=== PATIENT | female | born 1995 | race Caucasian/White ===

== ENCOUNTER → 2018-05-06 10:22 | Outpatient (CLI) | payer OTHER, SELFPAY ==
[2018-05-07 10:33] LABS: hCG Titer Quant., Serum 3 mIU/mL (<9 non-preg)
--- OUTSIDE RECORDS SUMMARY | 2018-07-09 13:04 | XMS RPT_ITS ---
:1995 Author Organization OHIP Care Team Providers Name Role Phone BradlyGeena Attending Unavailable BarrientosParviz Summer Referring Unavailable PROBLEMS PROBLEMS DATE TYPE CONDITION / CODE ATTENDING STATUS SOURCE 05/07/2018 Unknown O20.0 - Bradly Active Randi Threatened Summer [facility] / Hospital O20.0(ICD-10) Repository PROCEDURES PROCEDURES No Procedure Records FoundRESULTS RESULTS HCG TITER QUANT., Collected: 05/06/2018 Status: F Source: RANDI SERUM 11:59 AM [facility] REPOSITORY TYPE CODE TESTS RESULT OUT OF RANGE REFERENCE UNITS LAB L700.8000 <9 non-preg mIU/mL Normal HCG 3 QUANT. Performed By: #### L700.8000 #### [facility] [address] [place], [address] ABO RH BLOOD TYPE, Collected: 05/06/2018 Status: F Source: RANDI PATIENT 11:59 AM [facility] REPOSITORY TYPE CODE TESTS RESULT OUT OF RANGE REFERENCE UNITS LAB B10.0800 A Normal BLOOD NEGATIVE TYPE GEL Performed By: #### B10.0010 #### [facility] [address] [place], [address] ALLERGIES ALLERGIES No Allergies Records FoundENCOUNTERS ENCOUNTERS ADMIT/DISCHARGE ACCOUNT ADMITTING ENCOUNTER LOCATION SOURCE NUMBER CLASS 05/06/2018 [id number] Ambulatory [address] ing:LABSPEC Repository PAYERS PAYERS ENCOUNTER GUARANTOR PAYER SUBSCRIBER SOURCE 05/06/2018 [place] Primary Insurance:[facility] [place] Costa Randi [id number] W SHARED SERVICES HERSHYDOB[facility] [address]Prmwuw Number: [id number] [id number] [facility] Date:2612-65-04[address] [address]Rxk: [phone] [phone] () [place] [address]UV: 05/06/2018 Secondary NOT GIVENUNK Randi Insurance:SELF PAY Community [facility] Number: Effective Repository Date:2018-05-06
== END ==
PROVIDERS: Referring Provider Obstetrics & Gynecology; Visit Provider Obstetrics & Gynecology
DX: O20.0 Threatened abortion (principal)
CPT/HCPCS: 36415; 84702; 86900

== ENCOUNTER 2019-04-08 14:30 | Inpatient (IN) | payer OTHER, SELFPAY ==
[2019-04-08 11:26] VITALS: BMI 27.1
[2019-04-08 15:31] LABS: Absolute Lymphocyte Count 2.44 X10^3/uL (0.83-4.51); Absolute Neutrophil Count 15.4 X10^3/uL (2.0-7.7); Basophil# 0.05 X10^3/uL; Basophil% 0.3 % (0-1); Eosinophil# 0.21 X10^3/uL; Eosinophils% 1.1 % (0-5); Hematocrit 38.7 % (37-47); Hemoglobin 13.3 g/dL (12.0-15.0); Lymphocyte # 2.44 X10^3/ul (4.0); Lymphocyte % 12.8 % (19-41); Mean Corp Hgb Conc 34.4 g/dL (32-36); Mean Corpuscular Hgb 31.1 pg (27.0-32.0); Mean Corpuscular Volume 90.4 fL (81-99); Mean Platelet Vol. 9.8 fl (6.2-12.0); Monocyte# 0.87 X10^3/uL; Monocyte% 4.6 % (0-10); NRBC Flagged by Analyzer 0 % (0-5); Neutrophil # 15.35 X10^3/uL (2.7-7.7); Neutrophil % 80.6 % (47-70); Platelet Count 198 K/mm3 (150-450); RBC Distribution Width CV 13.9 % (11.6-14.6); RBC Distribution Width SD 45.1 fl (35.1-43.9); Red Blood Count 4.28 M/mm3 (4.2-5.4)
--- NOTE | 2019-04-08 18:08 | PCM.HP.BLA ---
History and Physical Date of Admission: 04/08/19 [facility] History of this : 23 yo female Ab0 with EDC 04/08/2019 by L =8 weeks1 day Ultrasound, presents to Labor and Delivery. care remarkable for - A NEG, Rubella NONIMMUNE, EPDS = 5, MSAFP and CF testing declined, Prefers not to have an epidural, but is not opposed to one., Laryngopharyngeal reflux, 3 indoor/outdoor cats, has been changing litter, advised to stop. Toxoplasmosis IgG, IgM included with labs., and childbirth classes encouraged, ALLERGIC to Aspirin! Pertinent Past Medical History: Rubella - 08/28/18 Group B Strep - Negative 03/12/19 Allergies: Aspirin Medications: During - Claritin 10 mg tablet; Zyrtec 10 mg tablet; 28 mg-800 mcg tablet STREP GP B LATASHA 03/12/19 STREP GP B LATASHA Negative Reviewed by MARK SCHAEFER. DIABETES 1-HR SCREEN 01/20/19 GESTATIONAL DIABETES SCREEN 100 mg/dL 65-139 CBC WITH DIFFERENTIAL/PLATELET 01/20/19 WBC 13.3 x10E3/uL 3.4-10.8 H RBC 3.85 x10E6/uL 3.77-5.28 HEMOGLOBIN 11.6 g/dL 11.1-15.9 HEMATOCRIT 34.9 % 34.0-46.6 MCV 91 fL 79-97 MCH 30.1 pg 26.6-33.0 MCHC 33.2 g/dL 31.5-35.7 RDW 13.1 % 12.3-15.4 PLATELETS 211 x10E3/uL 150-450 NEUTROPHILS 77 % Not Estab. LYMPHS 13 % Not Estab. MONOCYTES 5 % Not Estab. EOS 4 % Not Estab. BASOS 0 % Not Estab. IMMATURE CELLS NEUTROPHILS (ABSOLUTE) 10.3 x10E3/uL 1.4-7.0 H LYMPHS (ABSOLUTE) 1.8 x10E3/uL 0.7-3.1 MONOCYTES(ABSOLUTE) 0.6 x10E3/uL 0.1-0.9 EOS (ABSOLUTE) 0.5 x10E3/uL 0.0-0.4 H BASO (ABSOLUTE) 0.0 x10E3/uL 0.0-0.2 IMMATURE GRANULOCYTES 1 % Not Estab. IMMATURE GRANS (ABS) 0.1 x10E3/uL 0.0-0.1 NR HEMATOLOGY COMMENTS: ANTIBODY SCREEN 01/20/19 ANTIBODY SCREEN Negative Negative Reviewed by MARK WRITTEN AUTHORIZATION 09/24/18 WRITTEN AUTHORIZATION Written Authorization Received. Authorization received from LOREE Sifuentes LPN 09-25-2018 Logged by Betty Cornelius NICOTINE METABOLITE, URINE 09/24/18 COTININE Negative ng/mL Lcibgw=857 DRUG SCREEN COMMENT: This analysis is performed by immunoassay. Positive findings are unconfirmed analytical test results; if results do not support expected clinical finding, confirmation by an alternate methodology is recommended. Patient metabolic variables, specific drug chemistry, and specimen characteristics can affect test outcome. Technical consultation is available at [email or web address], or call toll free [phone]. [id number] 7+ALC-UNBUND 09/24/18 AMPHETAMINES, URINE Negative ng/mL Shuxrm=6849 Amphetamine test includes Amphetamine and Methamphetamine. BARBITURATE Negative ng/mL Kkwkhq=925 BENZODIAZEPINES Negative ng/mL Smqydc=855 CANNABINOID Negative ng/mL Cutoff=50 COCAINE (METAB.) Negative ng/mL Xosoku=250 OPIATES Negative ng/mL Omvxne=359 Opiate test includes Codeine and Morphine only. PHENCYCLIDINE Negative ng/mL Cutoff=25 ETHANOL, URINE Negative % Cutoff=0.020 Reviewed by LEWIS WRITTEN AUTHORIZATION 08/28/18 WRITTEN AUTHORIZATION Written Authorization Received. Authorization received from ORIGINAL ORDER 08-29-2018 Logged by Tanya Perez TOXOPLASMA ABS IGG/IGM 08/28/18 TOXOPLASMA GONDII AB,IGG,QN <3.0 IU/mL 0.0-7.1 Negative <7.2 Equivocal 7.2 - 8.7 Positive >8.7 TOXOPLASMA GONDII AB,IGM,QN 3.1 AU/mL 0.0-7.9 Negative <8.0 Equivocal 8.0 - 9.9 Positive >9.9 COMMENTS No serological evidence of infection with Toxoplasma. If symptoms persist, submit a new specimen after three weeks. Reviewed by LEWIS TOXOPLASMA ABS, IGG/IGM, CSF 08/28/18 TOXOPLASMA GONDII AB, IGG NOCSF IU/mL No Spinal Fluid received. TOXOPLASMA GONDII AB, IGM TNP Test not performed SPECIMEN STATUS REPORT 08/28/18 SPECIMEN STATUS REPORT VOIDQ Test Not Performed. Patient was unable to provide sufficient quantity of a self collected specimen for testing. . TEST: [id number] 7+Alc-Unbund [id number] Nicotine Metabolite, Urine REQUEST PROBLEM 08/28/18 REQUEST PROBLEM NOCSF No Spinal Fluid received. TEST: [id number] Toxoplasma Abs, IgG/IgM, CSF NICOTINE METABOLITE, URINE 08/28/18 COTININE VOIDQ ng/mL Test Not Performed. Patient was unable to provide sufficient quantity of a self collected specimen for testing. . DRUG SCREEN COMMENT: HCV ANTIBODY 08/28/18 HEP C VIRUS AB <0.1 s/co ratio 0.0-0.9 Negative: < 0.8 Indeterminate: 0.8 - 0.9 Positive: > 0.9 . CBC/D/PLT+RPR+UA+RH+ABO+RUB... 08/28/18 TSH 1.240 uIU/mL 0.450-4.500 HBSAG SCREEN Negative Negative RPR Non Reactive Non Reactive RUBELLA ANTIBODIES, IGG <0.90 index Immune >0.99 L Non-immune <0.90 Equivocal 0.90 - 0.99 Immune >0.99 ABO GROUPING A RH FACTOR Negative Please note: Prior records for this patient's ABO / Rh type are not available for additional verification. ANTIBODY SCREEN Negative Negative HIV SCREEN 4TH GENERATION WRFX Non Reactive Non Reactive WBC 17.8 x10E3/uL 3.4-10.8 H RBC 4.66 x10E6/uL 3.77-5.28 HEMOGLOBIN 13.6 g/dL 11.1-15.9 HEMATOCRIT 41.1 % 34.0-46.6 MCV 88 fL 79-97 MCH 29.2 pg 26.6-33.0 MCHC 33.1 g/dL 31.5-35.7 RDW 13.8 % 12.3-15.4 PLATELETS 288 x10E3/uL 150-379 Effective September 02, 2018 the reference interval for Platelets will be changing to: 0 - 7 d 140 - 396 x10E3/uL 8 - 30 d 139 - 531 x10E3/uL 31 d - 999 yrs 150 - 450 x10E3/uL NEUTROPHILS 72 % Not Estab. LYMPHS 18 % Not Estab. MONOCYTES 6 % Not Estab. EOS 4 % Not Estab. BASOS 0 % Not Estab. IMMATURE CELLS NEUTROPHILS (ABSOLUTE) 12.8 x10E3/uL 1.4-7.0 H LYMPHS (ABSOLUTE) 3.2 x10E3/uL 0.7-3.1 H MONOCYTES(ABSOLUTE) 1.1 x10E3/uL 0.1-0.9 H EOS (ABSOLUTE) 0.7 x10E3/uL 0.0-0.4 H BASO (ABSOLUTE) 0.0 x10E3/uL 0.0-0.2 IMMATURE GRANULOCYTES 0 % Not Estab. IMMATURE GRANS (ABS) 0.0 x10E3/uL 0.0-0.1 NRBC HEMATOLOGY COMMENTS: SPECIFIC GRAVITY 1.013 1.005-1.030 PH 7.0 5.0-7.5 URINE-COLOR Yellow Yellow APPEARANCE Clear Clear WBC ESTERASE Negative Negative PROTEIN Negative Negative/Trace GLUCOSE Negative Negative KETONES Negative Negative OCCULT BLOOD Negative Negative BILIRUBIN Negative Negative UROBILINOGEN,SEMI-QN 0.2 mg/dL 0.2-1.0 NITRITE, URINE Negative Negative MICROSCOPIC EXAMINATION Microscopic not indicated and not performed. AMBIGUOUS TEST ORDER 08/28/18 AMBIGUOUS TEST ORDER Report delayed in order to contact you to clarify requested test(s). TEST: [id number] Toxoplasma Abs IgG/IgM Contacted Kanchan Barber at your facility on 08/29/18 [id number] 7+ALC-UNBUND 08/28/18 AMPHETAMINES, URINE VOIDQ ng/mL Test Not Performed. Patient was unable to provide sufficient quantity of a self collected specimen for testing. . Amphetamine test includes Amphetamine and Methamphetamine. BARBITURATE TNP Test not performed BENZODIAZEPINES TNP Test not performed CANNABINOID TNP Test not performed COCAINE (METAB.) TNP Test not performed OPIATES TNP Test not performed PHENCYCLIDINE TNP Test not performed ETHANOL, URINE TNP Test not performed Reviewed by LEWIS SHAW IG, RFX HPV ASCU 08/14/18 DIAGNOSIS: NEGATIVE FOR INTRAEPITHELIAL LESION OR MALIGNANCY. SPECIMEN ADEQUACY: Satisfactory for evaluation. Endocervical and/or squamous metaplastic cells (endocervical component) are present. CLINICIAN PROVIDED ICD10: Z12.4 Z11.3 Z32.01 PERFORMED BY: Ole Witt, Cytogenetic Technologist (ASCP) .. The HPV DNA reflex criteria were not met with this specimen result therefore, no HPV testing was performed. . CHLAMYDIA/GC AMPLIFICATION 08/14/18 CHLAMYDIA TRACHOMATIS, LATASHA Negative Negative NEISSERIA GONORRHOEAE, LATASHA Negative Negative Source.............Cervix;Endocervix LMP / Prev Treat...RMO=[id number] Other.............. No. of containers..01 ThinPrep Vial No. of containers..01 Aptima Vaginal Swab ([place] Label) Reviewed by LEWIS Review of Systems: - Non-contributory PHYSICAL EXAMINATION General Appearence: 23 yo female in no acute distress Vital Signs: AF, VSS Heart: RRR without rubs or gallops Lungs: CTA x 2 Breasts: Deferred Abdomen: Gravid Pelvis: Adequate Cervix: 7/90/-2 per RN at 1740 Presentation: Cephalic Fetus: Size: AGA Movement: Present Heart: 125 bpm baseline, moderate variability, +accels, no decels UCs: Q 2-3 Impression: 23yo at 40w0d gestation by L=8w1d US GBS negative A negaive Rubella non-immune Active labor Cat 1 FHTs Plan: Admit to L&D Expectant management Anticipate vaginal delivery See Progress Notes for Changes:
[2019-04-08] MEDS: Lactated Ringers 1,000 ML 50 ML IV ×2 (20:10→22:57)
--- NOTE | 2019-04-08 21:09 | PCM.PN.OB ---
Subjective: Feeling okay. Pressure with peak of contraction. Objective: On hands and knees reclined position. Tolerating contractions. IV fluids on. massaging back. Able to talk through contractions. - Physical Exam Vitals/I&O's: Weight: 69.4 kg Body Mass Index (BMI) 27.1 Intake and Output for Last 24 Hours 04/06/19 04/07/19 04/08/19 23:59 23:59 23:59 Intake Total 200 / 200 Balance 200 / 200 General: Alert, Oriented x3, Cooperative HEENT: Atraumatic, PERRLA, EOMI, Normocephalic Neck: Supple, No JVD, Negative Carotid Bruits Lungs: Clear to auscultation, Normal air movement Cardiovascular: Regular rate, No murmurs Abdomen: Bowel Sounds Present, Soft, Non Tender Extremities: No edema, Capillary Refill Less than 3 Seconds Skin: No rashes, No breakdown Musculoskeletal: No Tenderness to Palpation of Joints or Extremities Neurological: Cranial nerves II-XII grossly intact Psych/Mental Status: Normal Affect, Appropriate Laboratory Results 04/08/19 15:10: WBC 19.0 H, RBC 4.28, Hgb 13.3, Hct 38.7, MCV 90.4, MCH 31.1, MCHC 34.4, RDW Std Deviation 45.1 H, RDW Coeff of Christ 13.9, Plt Count 198, MPV 9.8, Immature Gran % (Auto) 0.600, Neut % (Auto) 80.6 H, Lymph % (Auto) 12.8 L, [place] % (Auto) 4.6, Eos % (Auto) 1.1, Baso % (Auto) 0.3, Absolute Neuts (auto) 15.4 H, Absolute Lymphs (auto) 2.44, Nucleated RBC % 0 04/08/19 15:10: Blood Type A NEGATIVE, Antibody Screen NEGATIVE Current Medications Acetaminophen (Tylenol) 325 - 650 mg PO Q4H PRN PRN PRN Reason: Pain Score 1-3/10 Al Hydroxide/Mg Hydroxide (Mylanta Ii) 15 - 30 ml PO Q4H PRN PRN PRN Reason: INDIGESTION Citric Acid/Sodium Citrate (Bicitra) 30 ml PO X1 PRN PRN Reason: Section Lactated Ringer's () 500 mls @ 999 mls/hr IV .Q31M PRN PRN Reason: Epidural Lactated Ringer's () 500 mls @ 999 mls/hr IV .Q31M PRN PRN Reason: Corrective Measures Lactated Ringer's () 1,000 mls @ 50 mls/hr IV .Q20H ILIA Last Admin: 04/08/19 20:10 Dose: 50 mls/hr Documented by: Nalbuphine HCl (Nubain) 5 - 10 mg IV Q3H PRN PRN PRN Reason: Pain Score 4-10/10 Nalbuphine HCl (Nubain) 5 - 10 mg SC Q3H PRN PRN PRN Reason: Pain Score 4-10/10 Ondansetron HCl (Zofran) 4 mg IV Q4H PRN PRN PRN Reason: NAUSEA Prochlorperazine Edisylate (Compazine Iv) 10 mg IV Q6H PRN PRN PRN Reason: NAUSEA Sodium Chloride () 10 - 40 ml IV X1 PRN PRN Reason: SALINE FLUSH Medical Necessity - Tobacco Use Smoking Status: Never smoker Assessment/Plan A: SVE per RN /-1 at 2011 Active labor VSS, afebrile 97.7 NST reactive, Category I. Increase in baseline to 170, + accels, variables noted, moderate variability UC 1-4 minutes P: Continue with labor with expected IV fluids to continue
--- NOTE | 2019-04-08 22:30 | PN_ITS ---
Progress Note S: Feeling pressure with contractions, minimal pain, cold/shaky O: VSS, visibly shaking breathing through contractions which palpate intense heart rate back to baseline with + accels, - decels and moderate variability SVE 9.5/90/0 with anterior lip 9 o'clock to 12 o'clock, do not feel membranes- unknown rupture time? A: Category I FHR SVE changed in the last two hours ROM? Possibly in shower according to patient P: Continue natural labor Materal positioning with peanut ball to right sided [place] roll Anticipate
[2019-04-08] MEDS: Lactated Ringers 1,000 ML 999 ML IV (22:56)
--- NOTE | 2019-04-09 00:16 | PN.OBGYN_ITS ---
Subjective: Contraction pain /10, but no urge to push Objective: VSS. Currently using squat bar with contractions - Physical Exam Vitals/I&O's: Weight: 69.4 kg Body Mass Index (BMI) 27.1 Intake and Output for Last 24 Hours 04/07/19 04/08/19 04/09/19 23:59 23:59 23:59 Intake Total 879.64 / 879.64 Output Total 100 / 100 Balance 779.64 / 779.64 General: Alert, Oriented x3, Cooperative HEENT: Atraumatic, PERRLA, EOMI, Normocephalic Neck: Supple, No JVD, Negative Carotid Bruits Lungs: Clear to auscultation, Normal air movement Cardiovascular: Regular rate, No murmurs Abdomen: Bowel Sounds Present, Soft, Non Tender, Gravid Extremities: No edema, Capillary Refill Less than 3 Seconds Skin: No rashes, No breakdown Musculoskeletal: No Tenderness to Palpation of Joints or Extremities Neurological: Cranial nerves II-XII grossly intact Psych/Mental Status: Normal Affect, Appropriate Laboratory Results 04/08/19 15:10: WBC 19.0 H, RBC 4.28, Hgb 13.3, Hct 38.7, MCV 90.4, MCH 31.1, MCHC 34.4, RDW Std Deviation 45.1 H, RDW Coeff of Christ 13.9, Plt Count 198, MPV 9.8, Immature Gran % (Auto) 0.600, Neut % (Auto) 80.6 H, Lymph % (Auto) 12.8 L, Jerome % (Auto) 4.6, Eos % (Auto) 1.1, Baso % (Auto) 0.3, Absolute Neuts (auto) 15.4 H, Absolute Lymphs (auto) 2.44, Nucleated RBC % 0 04/08/19 15:10: Blood Type A NEGATIVE, Antibody Screen NEGATIVE Current Medications Acetaminophen (Tylenol) 325 - 650 mg PO Q4H PRN PRN PRN Reason: Pain Score 1-3/10 Al Hydroxide/Mg Hydroxide (Mylanta Ii) 15 - 30 ml PO Q4H PRN PRN PRN Reason: INDIGESTION Citric Acid/Sodium Citrate (Bicitra) 30 ml PO X1 PRN PRN Reason: Section Lactated Ringer's () 500 mls @ 999 mls/hr IV .Q31M PRN PRN Reason: Epidural Lactated Ringer's () 500 mls @ 999 mls/hr IV .Q31M PRN PRN Reason: Corrective Measures Lactated Ringer's () 1,000 mls @ 50 mls/hr IV .Q20H ILIA Last Admin: 04/08/19 22:57 Dose: 50 mls/hr Documented by: Nalbuphine HCl (Nubain) 5 - 10 mg IV Q3H PRN PRN PRN Reason: Pain Score 4-10/10 Nalbuphine HCl (Nubain) 5 - 10 mg SC Q3H PRN PRN PRN Reason: Pain Score 4-10/10 Ondansetron HCl (Zofran) 4 mg IV Q4H PRN PRN PRN Reason: NAUSEA Prochlorperazine Edisylate (Compazine Iv) 10 mg IV Q6H PRN PRN PRN Reason: NAUSEA Sodium Chloride () 10 - 40 ml IV X1 PRN PRN Reason: SALINE FLUSH Medical Necessity - Tobacco Use Smoking Status: Never smoker Assessment/Plan A: SVE 10/100/0 >1 hour UC 1-4 minutes, no urge to push P: Continue natural labor, to recheck at 0100. If no progress will update collaborating MD to develop POC Continue position changes including hands and knees and throne with squat bar
[2019-04-09] MEDS: Oxytocin 30 units/NS 500 ml 30 UNITS/500 ML IV.SOLN 334 UNITS IV (03:35)
--- NOTE | 2019-04-09 03:55 | PCM.OPRPT ---
Problem List (1) Normal vaginal delivery Status: Acute Report of Operation Date of Procedure: 04/09/19 Vaginal Delivery Maternal Presentation: Active Labor arrived at with regular UC at 40wk0d Amniotic Membrane Rupture Type: Artificial Rupture of Membrane time: 2239 Amniotic Fluid Description: Clear Final [place]: 04/09/19 Final [place] Source: US <20 weeks Gestational age: 40 Weeks and 0 Days Date of Procedure: 04/09/19 Pre-Operative Diagnosis: Labor Post-Operative Diagnosis: S/P Surgery/ Procedure Performed: Spontaneous Vaginal Delivery Type of Anesthesia: None Description of Procedure: Called with head at introitus after 2 hours of controlled pushing. She pushed to deliver head over intact perineum. Head gently guided to allow delivery of anterior and posterior shoulders. Compound left hand presentation. Body delivered & infant placed on maternal abdomen. Viable male infant with cries after gentle stimulation and bulb suction by RN. Cord allowed to pulsate until spontaneously ceasing after 5 minutes. Clamped x2 and cut by CNM. IV Pitocin started with cutting of the cord. Maternal urge to push and spontaneous delivery of placenta. Fundal massage with good uterine tone obtained. No vaginal lacerations noted. Counts correct x 2 with RN. EBL 50. Presentation: Vertex, CAROLINE - compound left hand Placental Delivery Description: Spontaneous Placenta Disposition: [facility] Cord Vessel Description: 3 Vessels Cord Entanglement: None Estimated Blood Loss: 50 Infant A gender: Male (1 minute): 8 (5 minute): 9 Episiotomy Description: None Laceration: None Medications given after delivery: IV Pitocin
--- NOTE | 2019-04-09 04:12 | DCINST_ITS ---
Discharge Diet: No Restrictions Discharge Activity: Return to Normal Activity, May not drive while taking narcotic pain medications., May Shower May resume sexual activity in: - - One week after cessation of lochia and per maternal comfort Additional Activity Instructions:: Do not use tampons for 6 weeks, pads only. You may return to work/school after post- follow-up appointment. Additional Instructions: If you experience any of the following, contact your healthcare provider. * Bleeding that soaks a pad every hour for 2 hours * Fever 100.4 or higher * Unrelieved incision or abdominal pain * Swelling, redness, discharge or bleeding from your incision or episiotomy site * Your incision begins to separate * Problems urinating (including inability to urinate or burning while urinating). * Visual changes * Severe headache * Flu-like symptoms * Pain or redness in one of both of your breasts * Pain, warmth, tenderness or swelling in your legs, especially the calf area * Frequent nausea and vomiting * Symptoms of depression or anxiety If you experience any of the following, call 911 or go to the nearest Emergency Room. * Chest pain * Problems breathing * Seizure activity * Partial or complete paralysis of a body part, slurred speech, weakness or drooping of the face, or a sudden inability to walk or hold your balance Allergies/Adverse Reactions: Allergies aspirin Allergy (Verified 04/08/19 11:38) Nausea/Vom/Diarrhea Medications to take at Discharge Cetirizine HCl [Zyrtec] 10 mg PO DAILY 04/08/19 Caplet 1 tab PO DAILY 04/08/19 Please Follow Up With: Smitha Pérez CNM When: Call to make an appointment with your CNM in 6 weeks. If any signs of post depression, to return in 2 weeks. Primary Care Physician: Care Physician,No Primary [Primary Care Provider] - Test Results: Test results from this visit will be discussed in further detail at your follow- up appointment, if applicable.
[2019-04-09] MEDS: Ibuprofen 600 MG Tablet PO ×2 (05:43→12:59)
[2019-04-09 05:45] VITALS: BP 113/58; PULSE 77; RESP 18; TEMP 36.9
[2019-04-09] MEDS: 0.9% Saline Lock 10 ML Syringe IV (06:14)
[2019-04-09 08:55] VITALS: BP 115/68; PULSE 73; RESP 16; TEMP 36.4
[2019-04-09] MEDS: Acetaminophen 500 MG Tablet 1000 MG PO ×2 (10:03→14:34)
[2019-04-09 12:30] VITALS: BP 109/62; PULSE 100; RESP 14; TEMP 36.9
[2019-04-09 16:20] VITALS: BP 107/79; PULSE 79; RESP 14; TEMP 36.6
[2019-04-09 19:46] VITALS: BP 104/55; PULSE 101; RESP 16; TEMP 36.3; O2SAT 97
[2019-04-10 00:07] VITALS: BP 109/66; PULSE 90; RESP 20; TEMP 36.6; O2SAT 97
[2019-04-10 04:05] VITALS: BP 97/53; PULSE 65; RESP 16; TEMP 36; O2SAT 98
--- NOTE | 2019-04-10 07:16 | PCM.PN.OB ---
Patient Problems: Active and Suspected Problems Normal vaginal delivery (Acute) Subjective: She is sore, but no complaints. Denies heavy lochia. nursing well. She reports infant was gassy yesterday and fussy, but seems to do better today. She is anxious to start using her breast pump. Objective: AVSS - Physical Exam Vitals/I&O's: Vital Signs Temp Pulse Resp BP Pulse Ox 96.8 F L 65 16 97/53 L 98 04/10/19 04:05 04/10/19 04:05 04/10/19 04:05 04/10/19 04:05 04/10/19 04:05 Oxygen Delivery Method Room Air Weight: 69.4 kg Body Mass Index (BMI) 27.1 Intake and Output for Last 24 Hours 04/08/19 04/09/19 04/10/19 23:59 23:59 23:59 Intake Total 879.64 / 879.64 1131.67 / 1131.67 Output Total 100 / 100 900 / 900 Balance 779.64 / 779.64 231.67 / 231.67 General: Alert, Oriented x3, Cooperative, No apparent distress HEENT: Atraumatic Lungs: Normal air movement Cardiovascular: Regular rate, Regular Rhythm, Normal S1, Normal S2 Abdomen: Soft, Non Tender, Non-Distended, - - fundus firm and nontender, lochia scant Extremities: No edema, No Calf Tenderness Neurological: Neuro grossly intact Psych/Mental Status: Normal Affect, Appropriate, Alert and oriented to time, place, person, mood and affect Current Medications Acetaminophen (Tylenol) 1,000 mg PO Q8H PRN PRN PRN Reason: Pain Score 1-3/10 Last Admin: 04/09/19 14:34 Dose: 1,000 mg Documented by: Bisacodyl (Dulcolax) 10 mg RECTAL UD PRN PRN Reason: If no BM Dibucaine (Dibucaine) 1 applic TOPICAL TID PRN PRN; Protocol PRN Reason: Discomfort Hydrocortisone (Hytone) 1 applic TOPICAL TID PRN PRN; Protocol PRN Reason: Discomfort Ibuprofen (Motrin) 600 mg PO Q6H PRN PRN PRN Reason: Pain Score 1-3/10 Last Admin: 04/09/19 12:59 Dose: 600 mg Documented by: Methylergonovine Maleate (Methergine) 0.2 mg IM X1 PRN PRN Reason: Excess bleeding/uterine atony Ondansetron HCl (Zofran) 4 mg IV Q4H PRN PRN PRN Reason: Nausea Oxycodone HCl (Oxyir) 5 - 10 mg PO Q4H PRN PRN PRN Reason: Pain Score 4-10/10 Senna/Docusate Sodium (Senokot-S, Josefa-Colace) 1 - 2 tablet PO DAILY PRN PRN PRN Reason: Constipation Simethicone (Mylicon) 80 mg PO PCHS PRN PRN Reason: Indigestion/Stomach pain Sodium Chloride () 5 - 15 ml IV UD PRN PRN Reason: SALINE FLUSH Last Admin: 04/09/19 06:14 Dose: 10 ml Documented by: Zolpidem Tartrate (Ambien (Generic)) 5 mg PO QHS PRN PRN PRN Reason: Insomnia Medical Necessity - Tobacco Use Smoking Status: Never smoker Assessment/Plan All Active Problems Normal vaginal delivery (Acute) PPD#1 s/p doing well. -Rh negative, Rh positive - for Rhogam -Routine care -D/c home today
[2019-04-10 07:55] VITALS: BP 109/63; PULSE 83; RESP 16; TEMP 36.4
--- NOTE | 2019-04-10 08:00 | PCM.DC.SUM ---
Discharge Date and Diagnosis - Problem List Patient Problems: Active and Suspected Problems Normal vaginal delivery (Acute) Date of Admission: 04/08/19 Date of Discharge: 04/10/19 - Primary Discharge Diagnosis Active and Suspected Problems Normal vaginal delivery (Acute) Hospital Course and Treatment Operations: None Procedures: None Summary of Care Provided: The patient is a 23 year old F [] post vaginal delivery of viable male , not named yet. Patient Problems: Active and Suspected Problems Normal vaginal delivery (Acute) Subjective: Feeling well. Son is great with a good suck. Slight cramping, but Ibuprofen is enough. Passing flatus. Wants to discharge today. Objective: VSS. Fundus u/1 firm, midline, deep. Bleeding normal lochia. - Physical Exam Vitals/I&O's: Vital Signs Temp Pulse Resp BP Pulse Ox 96.8 F L 65 16 97/53 L 98 04/10/19 04:05 04/10/19 04:05 04/10/19 04:05 04/10/19 04:05 04/10/19 04:05 Oxygen Delivery Method Room Air Weight: 69.4 kg Body Mass Index (BMI) 27.1 Intake and Output for Last 24 Hours 04/08/19 04/09/19 04/10/19 23:59 23:59 23:59 Intake Total 879.64 / 879.64 1131.67 / 1131.67 Output Total 100 / 100 900 / 900 Balance 779.64 / 779.64 231.67 / 231.67 General: Alert, Oriented x3, Cooperative HEENT: Atraumatic, PERRLA, EOMI, Normocephalic Neck: Supple, No JVD, Negative Carotid Bruits Lungs: Clear to auscultation, Normal air movement Cardiovascular: Regular rate, No murmurs Abdomen: Bowel Sounds Present, Soft, Non Tender, Passing Flatus, - - fundus u/1 Extremities: No edema, Capillary Refill Less than 3 Seconds Skin: No rashes, No breakdown Musculoskeletal: No Tenderness to Palpation of Joints or Extremities Neurological: Cranial nerves II-XII grossly intact Psych/Mental Status: Normal Affect, Appropriate Current Medications Acetaminophen (Tylenol) 1,000 mg PO Q8H PRN PRN PRN Reason: Pain Score 1-3/10 Last Admin: 04/09/19 14:34 Dose: 1,000 mg Documented by: Bisacodyl (Dulcolax) 10 mg RECTAL UD PRN PRN Reason: If no BM Dibucaine (Dibucaine) 1 applic TOPICAL TID PRN PRN; Protocol PRN Reason: Discomfort Hydrocortisone (Hytone) 1 applic TOPICAL TID PRN PRN; Protocol PRN Reason: Discomfort Ibuprofen (Motrin) 600 mg PO Q6H PRN PRN PRN Reason: Pain Score 1-3/10 Last Admin: 04/09/19 12:59 Dose: 600 mg Documented by: Methylergonovine Maleate (Methergine) 0.2 mg IM X1 PRN PRN Reason: Excess bleeding/uterine atony Ondansetron HCl (Zofran) 4 mg IV Q4H PRN PRN PRN Reason: Nausea Oxycodone HCl (Oxyir) 5 - 10 mg PO Q4H PRN PRN PRN Reason: Pain Score 4-10/10 Senna/Docusate Sodium (Senokot-S, Josefa-Colace) 1 - 2 tablet PO DAILY PRN PRN PRN Reason: Constipation Simethicone (Mylicon) 80 mg PO PCHS PRN PRN Reason: Indigestion/Stomach pain Sodium Chloride () 5 - 15 ml IV UD PRN PRN Reason: SALINE FLUSH Last Admin: 04/09/19 06:14 Dose: 10 ml Documented by: Zolpidem Tartrate (Ambien (Generic)) 5 mg PO QHS PRN PRN PRN Reason: Insomnia Discharge Diet: No Restrictions Discharge Activity: Return to Normal Activity, May not drive while taking narcotic pain medications., May Shower May resume sexual activity in: - - One week after cessation of lochia and per maternal comfort Additional Activity Instructions:: Do not use tampons for 6 weeks, pads only. You may return to work/school after post- follow-up appointment. Home Medications: Medications to take at Discharge Cetirizine HCl [Zyrtec] 10 mg PO DAILY 04/08/19 Caplet 1 tab PO DAILY 04/08/19 Primary Care Physician: Care Physician,No Primary [Primary Care Provider] - Please Follow Up With: Smitha Pérez CNM When: Call for 6 week visit. If signs of depression 2 weeks Patient Instructions: Nutrition While , Common Questions About , : Caring for Yourself, at Home, After a Vaginal , Understanding Depression Additional Instructions: Continue Ibuprofen 600mg Q6H for cramping and discomfort as needed. May take Tylenol 650mg Q4-6H as needed for pain. May take OTC Colace or Senekot for stool softener x7D as needed. Disposition: Home Minutes spent on discharge:: 15 Patient Condition:: Good Medical Necessity - Tobacco Use Smoking Status: Never smoker Meaningful Use Info Meaningful Use Diagnoses (Choose all that apply): None applicable
[2019-04-10] MEDS: Senna/Docusate Sodium 1 Tablet PO (08:10)
[2019-04-10] MEDS: Ibuprofen 600 MG Tablet PO (08:10)
[2019-04-10] MEDS: Loratadine 10 MG Tablet PO (09:57)
[2019-04-10 13:45] VITALS: BP 110/67; PULSE 73; RESP 16; TEMP 36.4
== END 2019-04-10 16:10 | disposition home or self-care (01) | DRG 807 ==
LOC: WPOUT 15:04 → WP 15:04
PROVIDERS: Advanced Practice Midwife; Admitting Provider Obstetrics & Gynecology; Referring Provider Obstetrics & Gynecology; Visit Provider Obstetrics & Gynecology
DX: O32.6XX0 Maternal care for compound presentation, not applicable or unspecified (principal); O36.8330 Maternal care for abnormalities of the fetal heart rate or rhythm, third trimester, not applicable or unspecified; Z88.6 Allergy status to analgesic agent; Z3A.40 40 weeks gestation of pregnancy; Z37.0 Single live birth
CPT/HCPCS: 59025; 59050; 85025; 85461; 86850; 86900; 86901; 90384; 99218; J7120; A4216; G0378; J2790

== ENCOUNTER → 2021-03-09 10:56 | Outpatient (CLI) | payer OTHER, SELFPAY ==
[2021-03-09 11:34] LABS: Absolute Lymphocyte Count 2.76 X10^3/uL (0.83-4.51); Absolute Neutrophil Count 9.8 X10^3/uL (2.0-7.7); Basophil# 0.05 X10^3/uL; Basophil% 0.4 % (0-1); Eosinophil# 0.63 X10^3/uL; Eosinophils% 4.4 % (0-5); Hematocrit 39.1 % (37-47); Hemoglobin 13.3 g/dL (12.0-15.0); Lymphocyte # 2.76 X10^3/ul (0.83-4.51); Lymphocyte % 19.4 % (19-41); Mean Corpuscular Hgb 29.2 pg (27.0-32.0); Mean Corpuscular Volume 85.7 fL (81-99); Mean Platelet Vol. 9.2 fl (6.2-12.0); Monocyte% 6.3 % (0-10); NRBC Flagged by Analyzer 0 % (0-5); Neutrophil # 9.83 X10^3/uL (2.7-7.7); Platelet Count 307 K/mm3 (150-450); RBC Distribution Width CV 12.5 % (11.6-14.6); RBC Distribution Width SD 38.7 fl (35.1-43.9); Red Blood Count 4.56 M/mm3 (4.2-5.4); White Blood Count 14.2 K/mm3 (4.4-11.0)
[2021-03-09 11:37] LABS: Color, Urine Yellow (Yellow); Glucose, Dipstick Normal (Normal); Ketone-Dipstick Negative (Negative); Leukocyte Esterase-Dipstick 25 /ul (Negative); Nitrite-Dipstick Negative (Negative); Occult Blood-Urine Negative /ul (Negative); Protein-Dipstick Negative (Negative); Specific Gravity, Urine 1.015 (1.002-1.030); Urine Bilirubin Dipstick Negative (Negative); Urine Clarity Sl. Cloudy (Clear); Urine Urobilinogen Normal (Normal)
[2021-03-09 11:48] LABS: Amphetamine Urine VISTA NEGATIVE (<1000 ng/mL); Barbiturate Urine VISTA NEGATIVE (< 200 ng/mL); Benzodiazepine Urine VISTA NEGATIVE (< 200 ng/mL); Cocaine Urine VISTA NEGATIVE (< 300 ng/mL); Ecstacy Urine VISTA NEGATIVE (< 500 ng/mL); Methadone Urine VISTA NEGATIVE (< 300 ng/mL); PCP Urine VISTA NEGATIVE (< 25 ng/mL); THC Urine VISTA NEGATIVE (< 50 ng/mL); Vista UDS pH Range 6
[2021-03-09 11:55] LABS: Thyroid Stim Hormone (TSH) 0.59 uIU/mL (0.358-3.74)
[2021-03-09 12:27] LABS: HIV - WCH Non-Reactive (Nonreactive); Hepatitis B Surface Antigen Non-Reactive (Nonreactive); Hepatitis C Antibody Non-Reactive (Nonreactive); Syphilis Antibodies Non-reactive
[2021-03-14 03:06] LABS: Chlamydia By Nucleic Acid AMP Negative (Negative)
[2021-03-14 13:39] LABS: Gonococcus By Nucleic Acid AMP Negative (Negative)
== END ==
PROVIDERS: Visit Provider Obstetrics & Gynecology
DX: Z34.81 Encounter for supervision of other normal pregnancy, first trimester (principal)
CPT/HCPCS: 36415; 80307; 81002; 84443; 85025; 86703; 86762; 86780; 86803; 87077; 87086; 87088; 87340; 87491; 87591

== ENCOUNTER → 2021-08-02 | Outpatient (CLI) | payer OTHER, SELFPAY ==
[2021-08-02 15:46] LABS: Hematocrit 34.1 % (37-47); Hemoglobin 11.7 g/dL (12.0-15.0); Mean Corp Hgb Conc 34.3 g/dL (32-36); Mean Corpuscular Hgb 30.5 pg (27.0-32.0); Mean Platelet Vol. 9.5 fl (6.2-12.0); Platelet Count 230 K/mm3 (150-450); RBC Distribution Width CV 13.3 % (11.6-14.6); RBC Distribution Width SD 43.3 fl (35.1-43.9); Red Blood Count 3.83 M/mm3 (4.2-5.4); White Blood Count 15.5 K/mm3 (4.4-11.0)
[2021-08-02 15:54] LABS: Glucose Challenge Gest 1H 50g 106 mg/dL (70-140)
== END | disposition home or self-care (01) ==
LOC: WOBLAB 15:00
PROVIDERS: Visit Provider Obstetrics & Gynecology
DX: Z34.83 Encounter for supervision of other normal pregnancy, third trimester (principal)
CPT/HCPCS: 36415; 82950; 85027; 86850

== ENCOUNTER → 2021-09-21 | Outpatient (CLI) | payer OTHER, SELFPAY | END | disposition home or self-care (01) | LOC: LABSPEC 11:46 | PROVIDERS: Visit Provider Obstetrics & Gynecology | DX: Z36.85 Encounter for antenatal screening for Streptococcus B (principal) | CPT/HCPCS: 87081 ==

== ENCOUNTER 2021-11-03 07:07 | Inpatient (IN) | payer OTHER, SELFPAY ==
[2021-11-03] VITALS (45 sets, daily range): BP systolic 108–150; BP diastolic 52–79; PULSE 86–127; TEMP 36.4–36.8; O2SAT 91–100; BMI 31.6
[2021-11-03] MEDS: Lactated Ringers 1,000 ML 50 ML IV ×2 (07:51→22:27)
[2021-11-03 08:12] LABS: Absolute Lymphocyte Count 1.82 X10^3/uL (0.83-4.51); Absolute Neutrophil Count 12.4 X10^3/uL (2.0-7.7); Basophil# 0.05 X10^3/uL; Basophil% 0.3 % (0-1); Eosinophil# 0.11 X10^3/uL; Eosinophils% 0.7 % (0-5); Hematocrit 38.1 % (37-47); Hemoglobin 12.6 g/dL (12.0-15.0); Lymphocyte # 1.82 X10^3/ul (0.83-4.51); Lymphocyte % 11.8 % (19-41); Mean Corp Hgb Conc 33.1 g/dL (32-36); Mean Corpuscular Hgb 29.4 pg (27.0-32.0); Mean Corpuscular Volume 88.8 fL (81-99); Monocyte# 0.93 X10^3/uL; NRBC Flagged by Analyzer 0 % (0-5); Neutrophil # 12.36 X10^3/uL (2.7-7.7); Neutrophil % 80.2 % (47-70); Platelet Count 193 K/mm3 (150-450); RBC Distribution Width CV 13.4 % (11.6-14.6); RBC Distribution Width SD 43.6 fl (35.1-43.9); Red Blood Count 4.29 M/mm3 (4.2-5.4); White Blood Count 15.4 K/mm3 (4.4-11.0)
[2021-11-03] MEDS: Oxytocin 30 units/NS 500 ml 30 UNITS/500 ML IV.SOLN IV (08:28)
--- NOTE | 2021-11-03 11:10 | PCM.HP.BLA ---
History and Physical Date of Admission: 11/03/21 HPI: G3 P1 at 42/1 week, [place] 10/19/2021 by early ultrasound, admitted for postdates induction of labor. Denies regular contractions, leaking of fluid, vaginal bleeding. Reports movement. Denies headache, vision changes, chest pain or shortness of breath, nausea or vomiting, diarrhea or constipation, fevers or chills. complicated by: Postdates [employer] history: G1: 5-week SAB 2018 G2: 39-week 2019 G3: Current Medical history: Denies Surgical history: [place] teeth extraction Allergies: Aspirin Family history: Noncontributory Medications: vitamin Social history: Denies tobacco, alcohol, drug use Review of systems: negative otherwise stated above Physical exam: BP 150/70, pulse 86 General: No acute distress HEENT: Normocephalic/atraumatic, PERRLA Cardiac: Regular rhythm lungs: Clear to auscultation bilaterally Abdomen: Soft, nontender, gravid Extremities: Minimal edema Neurologic: No focal deficits, cranial nerves II through XII grossly intact Musculoskeletal: Strength out of 5 throughout all extremities Cervical exam: 5 cm Per RN labs: GBS negative, however as it was done greater than 5 weeks ago a neg HIV negative Hepatitis B/hepatitis C negative/negative Rubella immune Syphilis negative Labs today within normal limits FHR: 150/mod mio/+accel/no decel [place]: q1-4 Assessment/plan: G3, P1 at 42/1 week, [place] 10/19/2021 by early ultrasound, admitted for postdates induction of labor. complicated by: Postdates/ ?Admission for induction of labor ?GBS to be collected -unsure about AROM at this time
[2021-11-03 13:59] LABS: Group B Strep DNA By PCR Negative (Negative); Internal Control PASS; Probe Check PASS; Specimen Processing Control PASS
[2021-11-03] MEDS: Lactated Ringers 1,000 ML 200 ML IV (16:36)
[2021-11-03] MEDS: Ondansetron 4 MG/2 ML Vial IV (18:56)
[2021-11-03] MEDS: LACTATED RINGERS 500 ML 999 ML IV (19:33)
[2021-11-03] MEDS: fentaNYL-bupivacaine (epidural) 100 ML BAG EPIDURAL (19:54)
[2021-11-03] MEDS: Mag Hydrox/Al Hydrox/Simeth 30 ML UDC PO (23:06)
[2021-11-03] MEDS: Oxytocin 30 units/NS 500 ml 30 UNITS/500 ML IV.SOLN 334 UNITS IV (23:50)
--- NOTE | 2021-11-03 23:58 | EX.PCM.OBRPT ---
Vaginal Delivery Findings Description of Procedure: Normal spontaneous vaginal delivery of a viable female infant, vertex JUAN. Head and shoulders delivered with ease. Cord cut clamped. Baby handed off to patient. Placenta delivered via cord traction and fundal massage. First-degree midline perineal laceration noted and repaired in typical fashion. EBL 300 cc Apgars 8/9
[2021-11-04] VITALS (18 sets, daily range): BP systolic 103–124; BP diastolic 55–76; PULSE 75–116; RESP 16–18; TEMP 36.2–36.7; O2SAT 97
[2021-11-04] MEDS: Ibuprofen 600 MG Tablet PO ×3 (00:46→20:20)
--- NOTE | 2021-11-04 07:39 | PCM.PN.OB ---
Subjective Subjective No overnight complaints Objective Data Objective Data Vital Signs: Vital Signs Temp Pulse Resp BP Pulse Ox O2 Del Method 98.1 F 108 H 18 103/56 L 99 Room Air 11/04/21 02:00 11/04/21 03:40 11/04/21 03:39 11/04/21 03:40 11/03/21 21:47 11/04/21 03:39 Oxygen Delivery Method Room Air Weight: 179 lb Body Mass Index (BMI) 31.6 Intake & Output: Intake and Output for Last 24 Hours 11/02/21 11/03/21 11/04/21 23:59 23:59 23:59 Intake Total 2417.91 / 2417.91 620.83 / 620.83 Output Total 200 / 200 900 / 900 Balance 2217.91 / 2217.91 -279.17 / -279.17 Lab / Micro Data Result Diagrams: 11/03/21 07:48 Labs: Laboratory Results - last 24 hr 11/03/21 07:48: WBC 15.4 H, RBC 4.29, Hgb 12.6, Hct 38.1, MCV 88.8, MCH 29.4, MCHC 33.1, RDW Std Deviation 43.6, RDW Coeff of Christ 13.4, Plt Count 193, MPV 10.0, Immature Gran % (Auto) 1.000 H, Neut % (Auto) 80.2 H, Lymph % (Auto) 11.8 L, [place] % (Auto) 6.0, Eos % (Auto) 0.7, Baso % (Auto) 0.3, Absolute Neuts (auto) 12.4 H, Absolute Lymphs (auto) 1.82, Nucleated RBC % 0 11/03/21 07:48: Blood Type A NEGATIVE, Antibody Screen NEGATIVE 11/03/21 11:12: Group B Strep DNA Negative, Specimen Comment Not Reportable 11/04/21 02:30: Screen NEGATIVE, Baby's Blood Type A POSITIVE, Baby's [place] NEGATIVE Physical Exam Const alert, oriented x3, no apparent distress, average body habitus, healthy appearing and well nourished HEENT normocephalic Eyes PERRL Neck full ROM Resp normal respiratory effort, no retractions and no use of accessory muscles GI GI Narrative: Soft, nontender, uterus firm below umbilicus Extremity normal to inspection, full ROM and no clubbing, cyanosis or edema Neuro moves all extremities and no focal motor deficits Psych mental status grossly normal, affect normal, speech normal and activity/motor behavior normal Assessment & Plan (1) Normal vaginal delivery: PLAN: day 1. Breast-feeding. Likely discharge home tomorrow
[2021-11-04] MEDS: Senna/Docusate Sodium 1 Tablet PO (10:20)
[2021-11-04] MEDS: Acetaminophen 500 MG Tablet 1000 MG PO (20:21)
[2021-11-05 00:50] VITALS: BP 123/71; PULSE 92; RESP 16; TEMP 36
[2021-11-05 01:11] VITALS: BP 123/71; PULSE 92
[2021-11-05] MEDS: Acetaminophen 500 MG Tablet 1000 MG PO (05:42)
[2021-11-05] MEDS: Ibuprofen 600 MG Tablet PO (05:42)
--- NOTE | 2021-11-05 07:20 | NURSING ---
report given to Morris Rinaldi RN who is assuming care of pt at this time
[2021-11-05 07:38] VITALS: BP 128/69; PULSE 90; RESP 16; TEMP 36.2
--- NOTE | 2021-11-05 11:20 | PCM.DC.BLA ---
Discharge Summary Date of Admission: 11/03/21 Date of Discharge: 11/05/21 Summary: Patient arrived on 11/03/2021 for induction of labor for postdates. Subsequently delivered on 11/03/2021 vaginally. recovery routine. Discharge home on 11/05/2021 Meaningful Use Info Meaningful Use Diagnoses (Choose all that apply): None applicable Discharge Plan Admission Admit Date/Time: 11/03/21 07:07 Primary Reason for Your Visit: Induction of labor postdates Attending Provider: Nitesh Núñez Primary Care Provider: Care PhysicianSarika Primary Instructions Additional Instructions / Restrictions: Regular diet, weightbearing as tolerated, okay to shower, no intercourse for 4 to 6 weeks. Call if chest pain, shortness of breath, increased vaginal bleeding. Follow-up 4 to 6 weeks Discharge Orders/Prescriptions Prescriptions: No Action Caplet 1 tab PO DAILY cetirizine 10 MG tablet 10 mg PO DAILY sennosides-docusate sodium 1 TABLET tablet 1 - 2 tab PO DAILY PRN PRN (Reason: Constipation ) 0RF acetaminophen 500 MG tablet 1,000 mg PO Q8H PRN PRN (Reason: Pain Score 1-3/10) 0RF ibuprofen 600 MG tablet 600 mg PO Q6H PRN PRN (Reason: Pain Score 1-3/10) 0RF famotidine [Pepcid] 20 mg Tablet 20 mg PO DAILY Referrals / Follow Up: Care Physician,Sarika Primary [Primary Care Provider] - Disposition Disposition (needs filled in before D/C Order can be placed): Home, Self Care
--- NOTE | 2021-11-05 11:22 | PCM.PN.OB ---
Subjective Subjective No overnight complaint Objective Data Objective Data Vital Signs: Vital Signs Temp Pulse Resp BP Pulse Ox O2 Del Method 97.2 F L 90 16 128/69 H 97 Room Air 11/05/21 07:38 11/05/21 07:38 11/05/21 07:38 11/05/21 07:38 11/04/21 20:27 11/05/21 07:38 Oxygen Delivery Method Room Air Weight: 179 lb Body Mass Index (BMI) 31.6 Intake & Output: Intake and Output for Last 24 Hours 11/03/21 11/04/21 11/05/21 23:59 23:59 23:59 Intake Total 2417.91 / 2417.91 620.83 / 620.83 Output Total 200 / 200 1500 / 1500 Balance 2217.91 / 2217.91 -879.17 / -879.17 Lab / Micro Data Result Diagrams: 11/03/21 07:48 Micro: Microbiology 11/03/21 Unknown Genital vaginal Group B Streptococcus Culture - Preliminary Group B Beta Streptococcus is not isolated. Physical Exam Const alert, oriented x3, no apparent distress, average body habitus, healthy appearing and well nourished HEENT normocephalic Eyes PERRL Neck full ROM Resp normal respiratory effort, no retractions and no use of accessory muscles GI GI Narrative: Soft, nontender, uterus firm and below umbilicus Extremity normal to inspection, full ROM and no clubbing, cyanosis or edema Neuro moves all extremities and no focal motor deficits Psych mental status grossly normal, affect normal, speech normal and activity/motor behavior normal Assessment & Plan (1) Normal vaginal delivery: PLAN: day 2. Breast-feeding. 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
--- NOTE | 2021-11-05 11:36 | NURSING ---
Patient to schedule visit on Sunday.
== END 2021-11-05 11:30 | disposition home or self-care (01) | DRG 807 ==
PROVIDERS: Student in an Organized Health Care Education/Training Program; Admitting Provider Obstetrics & Gynecology; Visit Provider Obstetrics & Gynecology
DX: O48.0 Post-term pregnancy (principal); Z37.0 Single live birth; O70.0 First degree perineal laceration during delivery; Z3A.42 42 weeks gestation of pregnancy
CPT/HCPCS: 59025; 59050; 85025; 85461; 86850; 86900; 86901; 87081; 87653; 90384; 99218; J7120; G0378; J2405; J2790

== ENCOUNTER → 2022-05-24 | Outpatient (CLI) | payer OTHER, SELFPAY ==
[2022-05-30 18:29] LABS: HPV Reflexed? NOT INDICATED
== END | disposition home or self-care (01) ==
LOC: LABSPEC 10:05
PROVIDERS: Visit Provider Obstetrics & Gynecology
DX: Z12.4 Encounter for screening for malignant neoplasm of cervix (principal)
CPT/HCPCS: 88175; G0145